=== PATIENT | female | born 1985 | race Hispanic/Latino ===

== ENCOUNTER 2016-05-22 08:25 | Emergency (ER) | payer OTHER ==
[2016-05-22 08:55] VITALS: BP 138/85
[2016-05-22] MEDS ORDERED: DUONEB 0.5 MG-3 MG/3 ML SOLN IH ONE (10:05)
[2016-05-22] MEDS ORDERED: MOTRIN PO ONE (10:16)
--- NOTE | 2016-05-22 10:21 | Emergency Department Report ---
ED General Adult HPI - General Chief complaint: Extremity Injury, Upper Stated complaint: L WRIST PAIN Time Seen by Provider: 05/22/16 09:55 Source: patient Mode of arrival: Ambulatory Limitations: No Limitations - History of Present Illness Initial comments: PT states she thinks she has arthritis. PT states her mother was dx with arthritis in her 20s. PT states she has joint pain, knees and hips and the pain usually improves with Tylenol arthritis. PT states she has had L thumb pain x 2 weeks - pt rates this pain a 2/10 and she bought an over the counter thumb splint. PT states she was working last night ([employer]) and around 2200 her L wrist started bothering her. PT states the pain is different. PT state the wrist pain is sharp and stabbing and did not improve with Tylenol arthritis. PT also has a hx of asthma and has been using her home nebs. PT states she has known allergies to dogs, cats and pollen. PT states she lives with several cats and she has taken otc allergy medication without relief. PT denies fevers, chills, rashes or recent tick bite - Related Data Allergies Allergy/AdvReac Type Severity Reaction Status Date / Time pollen extracts AdvReac Itching Verified 05/22/16 08:46 ED Review of Systems ROS: Stated complaint: L WRIST PAIN Other details as noted in HPI ED Past Medical Hx - Past Medical History Hx Diabetes: Yes Hx Asthma: Yes Additional medical history: Vertigo, Depression, anxiety - Surgical History Past Surgical History?: No - Family History Family history: other (arthritis ) - Social History Smoking Status: Never Smoker Substance Use Type: Alcohol ED Physical Exam - General Limitations: No Limitations General appearance: alert, in no apparent distress, obese - Head Head exam: Present: atraumatic, normocephalic - Eye Eye exam: Present: normal appearance, PERRL Pupils: Present: normal accommodation - ENT ENT exam: Present: normal exam, mucous membranes moist, normal external ear exam - Neck Neck exam: Present: normal inspection, full ROM. Absent: tenderness - Respiratory Respiratory exam: Present: wheezes. Absent: respiratory distress, stridor, accessory muscle use, decreased breath sounds - Cardiovascular Cardiovascular Exam: Present: regular rate, normal rhythm, normal heart sounds - Extremities Exam Extremities exam: Present: normal inspection, tenderness, normal capillary refill. Absent: joint swelling - Expanded Upper Extremity Exam Left Elbow exam: Present: normal inspection, full ROM. Absent: tenderness Forearm Wrist exam: Present: normal inspection, tenderness over anatomical snuff box. Absent: deformity, crepidus, dislocation, erythema Hand Wrist exam: Present: normal inspection, full ROM, tenderness (to the mid palm). Absent: laceration, ecchymosis, deformity, crepidus, dislocation, erythema Vascular: Present: radial pulse - Back Exam Back exam: Present: normal inspection, full ROM - Neurological Exam Neurological exam: Present: alert, oriented X3 - Psychiatric Psychiatric exam: Present: normal affect, normal mood - Skin Skin exam: Present: warm, dry, intact ED Course Vital Signs 05/22/16 08:46 Temperature 98.8 F Pulse Rate 82 Respiratory 18 Rate Blood Pressure 138/85 O2 Sat by Pulse 97 Oximetry - Reevaluation(s) Reevaluation #1: 05/22/16 11:44 PT received neb. PT states she is breathing better. RLL cta, LLL has slight exp wheeze but over all, much improved. PT aware of XR results and plan of care. PT has no questions at this time. - Pulse Oximetry Interpretation Digit-Finger Initial Pulse Oximetry Readin Actions Taken: none ED Medical Decision Making - Radiology Data Radiology results: report reviewed L wrist - NAP - Differential Diagnosis strain, OA, asthma, allergies Critical Care Time: No Critical care attestation.: If time is entered above; I have spent that time in minutes in the direct care of this critically ill patient, excluding procedure time. ED Disposition Clinical Impression: Left wrist pain, Asthma exacerbation Disposition: DISCHARGED TO HOME OR SELFCARE Is pt being admited?: No Does the pt Need Aspirin: No Condition: Stable Instructions: Asthma (ED), Wrist Sprain (ED), RICE Therapy (ED), Allergic Rhinitis (ED) Additional Instructions: Continue wearing your brace try to avoid known allergens Referrals: CHRIS ARREGUIN MD [Primary Care Provider] - 3-5 Days RADHA GORDON MD [Staff Physician] - 3-5 Days Forms: Work/School Release Form(ED) Time of Disposition: 11:50
--- NOTE | 2016-05-22 10:23 | XRay Report ---
Left wrist 3 views: History: Pain. Findings: No bony or articular abnormality. No fracture dislocation or soft tissue calcification. Impression: Essentially negative left wrist.
== END 2016-05-22 12:01 | disposition home or self-care (01) ==
LOC: ED 08:25
DX: M25.532 Pain in left wrist (principal); J45.901 Unspecified asthma with (acute) exacerbation; E11.9 Type 2 diabetes mellitus without complications; F41.9 Anxiety disorder, unspecified; F32.9 Major depressive disorder, single episode, unspecified; Z91.048 Other nonmedicinal substance allergy status
CPT/HCPCS: 94640

== ENCOUNTER 2017-01-14 09:01 | Emergency (ER) | payer OTHER ==
[2017-01-14 09:20] VITALS: BP 133/82
[2017-01-14] MEDS ORDERED: NORCO 5/325 PO ONE (11:55)
--- NOTE | 2017-01-14 13:32 | XRay Report ---
XRAY LUMBAR SPINE THREE VIEWS: 01/14/17 09:01:00 CLINICAL: Lumbar back pain. FINDINGS: Normal vertebral body height and alignment. No fracture. Mild levoscoliosis centered at L3-4. The disc spaces are normal. Small anterior osteophytes from L1-2 through L3-4. The pedicles are intact. Multilevel facet joint sclerosis. Normal soft tissues. IMPRESSION: Mild scoliosis and degenerative disc disease from L1-2 through L3-4. Multilevel facet joint arthropathy.
--- NOTE | 2017-01-14 13:33 | XRay Report ---
THORACIC SPINE THREE VIEWS: 01/14/17 09:01:00 CLINICAL: Midthoracic back pain. FINDINGS: Mild scoliosis. Normal vertebral body height, alignment and disc spaces. No fracture. Minimal degenerative change. IMPRESSION: Mild scoliosis and minimal degenerative change.
--- NOTE | 2017-01-14 13:38 | Emergency Department Report ---
HPI - General Chief Complaint: Fall Time Seen by Provider: 01/14/17 11:22 - HPI HPI: The patient is a 31-year-old female who presents for evaluation of traumatic injury status post fall down a flight of stairs. The patient states that at 8 AM this morning she tripped and fell down approximately 7-8 stairs, half a flight of stairs at home, sustaining injuries to her head and her lower back. She reports constant mild ache in quality headache since the incident, 3 hours prior to my evaluation, and associated with left lower back/buttock pain, 8/10 in severity, aching in quality, exacerbated with movement of the lower back. ED Past Medical Hx - Past Medical History Hx Diabetes: Yes Hx Asthma: Yes Additional medical history: Vertigo, Depression, anxiety - Social History Smoking Status: Never Smoker Substance Use Type: None - Medications Home Medications: Home Medications Medication Instructions Recorded Confirmed Last Taken Type ALBUTEROL NEB's [Proventil 0.083% 2.5 mg IH TID PRN #25 neb 05/22/16 Unknown Rx NEBS] Ibuprofen [Motrin] 600 mg PO Q8H PRN #15 tablet 05/22/16 Unknown Rx Montelukast [Singulair] 10 mg PO QPM #30 tablet 05/22/16 Unknown Rx Ibuprofen [Motrin] 800 mg PO Q8HR PRN #15 tablet 01/14/17 Unknown Rx traMADol [Ultram 50 MG tab] 50 mg PO Q6HR PRN #15 tablet 01/14/17 Unknown Rx ED Review of Systems ROS: Stated complaint: FELL DOWN STAIRS Other details as noted in HPI Constitutional: denies: fever ENT: denies: throat or neck pain Respiratory: denies: cough, shortness of breath Cardiovascular: denies: chest pain Endocrine: denies unexplained weight loss or gain Gastrointestinal: denies: abdominal pain, nausea Genitourinary: denies: dysuria Musculoskeletal: reports hea back pain denies: leg swelling Skin: denies: rash Neurological: reports: headache Hematological/Lymphatic: denies: easy bleeding or easy bruising Psych: denies sadness or hopelessness Physical Exam - Physical Exam Vital Signs: Vital Signs 01/14/17 01/14/17 09:17 11:59 Temperature 98 F Pulse Rate 80 Respiratory 18 18 Rate Blood Pressure 133/82 O2 Sat by Pulse 100 Oximetry Physical Exam: General: well-nourished, well-developed, no acute distress Head: Normocephalic, atraumatic Eyes: normal sclera ENT: Mucous membranes are pink and moist Neck: trachea midline, neck supple, No neck stiffness, no cervical adenopathy Respiratory: Breath sounds equal bilaterally, no wheezing, rales, or rhonchi Cardio: S1 and S2 present, no murmurs, rubs, gallops, capillary refill is brisk Abdomen: Normoactive bowel sounds, soft abdomen, no rigidity, no guarding or rebound tenderness Musc: Tenderness to palpation present to left lower lumbosacral paraspinal musculature, pain is elicited with flexion at the hip, normal active range of motion at the hip intact, no spinous step-off or obvious deformity, ipsi- lateral and contralateral straight leg raise tests are negative. On extremity testing, compartments are soft and pliable, no obvious gross motor strength deficit, 5+ motor strength, including extension of the great toe bilaterally, no muscular atrophy, spasticity, fasciculations, or clonus, no obvious gross sensation deficit including web space between 1st and 2nd toes, reflexes 2+ & symmetric on DTR testing at the knee and ankle joints, distal pulses intact. Skin: No rash Neuro: alert oriented x4, normal cognition, speech normal, PERRL, EOM intact, no facial drooping, no uvula or tongue deviation on protrusion, no deficit with rotation of neck or shoulder shrug, no obvious gross motor deficit in the upper or lower extremities with flexion or extension at the shoulder, elbow, wrist, hip, knee, or ankle bilaterally, no obvious gross sensation deficit to crude touch or 2 pt discrimination, 2+ symmetric reflexes on DTR testing, no coordination deficit with [id number] testing, romberg negative, patient able to to ambulate without abnormal gait Psych: Normal affect ED Course Vital Signs 01/14/17 01/14/17 09:17 11:59 Temperature 98 F Pulse Rate 80 Respiratory 18 18 Rate Blood Pressure 133/82 O2 Sat by Pulse 100 Oximetry ED Medical Decision Making - Medical Decision Making The patient was seen and examined by myself. The patient is placed on a monitoring specialist and continuous pulse ox. On initial evaluation, the patient was found to be in no distress. Evaluation orders were placed. The patient given Tylenol for pain. X-ray of the lumbosacral spine and sacroiliac joints is unremarkable. CT scan of the head is negative for acute intracranial disease process. The patient was reevaluated and reported that their symptoms were markedly improved. The patient is stable for discharge with outpatient follow- up. The patient is given follow-up and return instructions. The patient expressed understanding and agreed with the plan. The patient is discharged in stable condition. Critical care attestation.: If time is entered above; I have spent that time in minutes in the direct care of this critically ill patient, excluding procedure time. ED Disposition Clinical Impression: Acute post-traumatic headache, not intractable, Acute low back pain due to trauma Fall down stairs Qualifiers: Encounter type: initial encounter Qualified Code(s): W10.8XXA - Fall (on) (from ) other stairs and steps, initial encounter Disposition: DC-01 TO HOME OR SELFCARE Is pt being admited?: No Does the pt Need Aspirin: No Condition: Stable Instructions: Acute Low Back Pain (ED), Acute Headache (ED), Musculoskeletal Pain (ED) Referrals: ASHLEIGH MENDEZ DO [Primary Care Provider] - 3-5 Days Time of Disposition: 14:37
--- NOTE | 2017-01-14 13:41 | Cat Scan Report ---
CT HEAD WITHOUT CONTRAST: 01/14/17 09:01:00 CLINICAL: Headache. TECHNIQUE: 2.5-mm noncontrast scans. COMPARISON:None FINDINGS: The ventricles and sulci are normal. No abnormal density. No mass or mass effect. No hemorrhage, edema or extra-axial collection. The sinuses are clear. Normal orbits and soft tissues. The calvarium and skull base are intact. IMPRESSION: Normal study.
== END 2017-01-14 14:56 | disposition home or self-care (01) ==
LOC: ED 09:01
DX: G44.319 Acute post-traumatic headache, not intractable (principal); M54.5 Low back pain; W10.9XXA Fall (on) (from) unspecified stairs and steps, initial encounter; Y93.89 Activity, other specified; Y92.89 Other specified places as the place of occurrence of the external cause; Y99.8 Other external cause status; E11.9 Type 2 diabetes mellitus without complications; J45.909 Unspecified asthma, uncomplicated
CPT/HCPCS: 70450; 72072; 72100